=== PATIENT | male | born 1965 | race Caucasian/White ===

== ENCOUNTER → 2020-07-03 10:43 | Outpatient (BNVA) | payer SELFPAY | PROVIDERS: PCP Internal Medicine; Visit Provider Internal Medicine ==

== ENCOUNTER → 2022-06-19 15:25 | Outpatient (BNVA) | payer SELFPAY | PROVIDERS: PCP Internal Medicine; Visit Provider Internal Medicine | DX: Z02.79 Encounter for issue of other medical certificate (principal) ==

== ENCOUNTER 2023-12-28 13:01 | Outpatient (AMB) | payer BC, SELFPAY ==
--- NOTE | 2023-12-28 13:11 | MHC.PC.OV ---
Vital Signs 12/28/23 13:12 Height 5 ft 10 in Weight 205 lb BMI 29.4 BP 140/70 H Blood Pressure Location Lt brachial Position Sitting Pulse 67 Pulse Source Pulse Oximeter Pulse Oximetry (%) 97 Oxygen Delivery Method Room Air Intake Visit Reasons: ANNUAL PE Fitness Coach Required: No Corrective Therapist: Not Required per policy Accompanied by: Self / Same As Patient Allergies No Known Allergies [No Known Allergies*] Allergy (Verified 12/28/23 13:12) Medication List - Last Reconciled 12/29/23 by Enoc Moreau MD fluconazole (Diflucan) 100 mg PO DAILY zolpidem (Ambien) 10 mg PO BEDTIME PRN Tobacco use date assessed: 12/28/23 Dental Screening Dental Screen Date: 12/28/23 Did you have a dental visit in the last 12 months?: Yes Did you have a dental problem in the last 6 months where you did not have access to dental care?: No Was dental information given to patient?: Patient has dentist HPI ANNUAL PE HPI Details healthy [facility] Surgical History (Updated 12/28/23 @ 13:20 by TIERRA Louis) No pertinent past surgical history Social History Housing: House Patient Tobacco Use Status: Never used Tobacco e-Cigarette/Vaping Use: Never Used Second Hand Smoke Exposure: No service: No Current occupational status: employed Cognitive needs: No Hearing needs: No Vision needs: No Questionnaire PHQ-9 Over the last 2 weeks, how often have you been bothered by any of the following problems? 1. Little interest or pleasure in doing things: not at all 2. Feeling down, depressed, or hopeless: not at all 3. Trouble falling or staying asleep, or sleeping too much: not at all 4. Feeling tired or having little energy: not at all 5. Poor appetite or overeating: not at all 6. Feeling bad about yourself - or that you are a failure or have let yourself or your family down: not at all 7. Trouble concentrating on things, such as reading the newspaper or watching television: not at all 8. Moving or speaking so slowly that other people could have noticed. Or the opposite - being so fidgety or restless that you have been moving around a lot more than usual: not at all 9. Thoughts that you would be better off or of hurting yourself in some way: not at all Total score: 0 Depression Screening Interpretation: Negative Depression Screening Done: Yes 60231 - PHQ-9 Billing: Yes Source: Developed by Drs. Dell Padron, Jazz Varghese, Martín Colunga and colleagues, with an educational vern from [employer]. Thrive Questionnaire Date Thrive assessed: 12/28/23 I am a: Patient What is your living situation today?: I have a steady place to live Within the past 12 months, did the food you bought not last and you didn't have the money to get more?: Never true Within the past 12 months, did you worry whether your food would run out before you got money to buy more?: Never true Do you have trouble paying for medicines?: No Do you have trouble getting transportation to medical appointments?: No Do you have trouble paying your heating and electricity bill?: No Do you have trouble taking care of your child, family member or friend?: No Do you have trouble with day-to-day activities such as bathing, preparing meals, shopping, managing finances, etc.?: No Are you currently unemployed and looking for a job?: No Are you interested in more education?: No Please select the resources that you would like help with: None THRIVE Score: 0 AUDIT C Alcohol Use Questionnaire (AUDIT-C) 1. How often do you have a drink containing alcohol?: Monthly or less 2. How many drinks containing alcohol do you have on a typical day when you are drinking?: 1 or 2 3. How often do you have six or more drinks on one occasion?: Never Total Score: 1 Score Reviewed/Action Taken: Yes DALIA-7 AMB Questionnaire DALIA-7 Date DALIA - 7 assessed: 12/28/23 Feeling nervous, anxious, or on edge: 0 = Not at all Not being able to stop or control worryin = Not at all Worrying too much about different things: 0 = Not at all Trouble relaxin = Not at all Being so restless that it is hard to sit still: 0 = Not at all Becoming easily annoyed or irritable: 0 = Not at all Feeling afraid as if something awful might happen: 0 = Not at all Total DALIA-7 score (0-4 normal; 5-9 mild; 10-14 moderate; 15-21 severe): 0 Source: Developed by Drs. Dell Padron, Jazz Varghese, Martín Colunga and colleagues, with an educational vern from [employer]. DALIA-7 Assessment Billing DALIA-7 Assessment Tool: DALIA-7 Assessment 28940 Review of Systems Const Denies chills, Denies fatigue, Denies headache(s) and Denies weight loss Eyes Denies change in vision, Denies diplopia and Denies eye pain ENT Denies vertigo, Denies dizziness, Denies headache(s) and Denies nasal discharge Card Denies chest pain, Denies rapid heart rate and Denies dyspnea on exertion Resp Denies chest congestion, Denies cough, Denies pain with cough and Denies dyspnea on exertion GI Denies abdominal pain, Denies hematochezia and Denies change in bowel habits Musc Denies myalgias, Denies arthralgias and Denies joint swelling Skin/Breast Denies lesions and Denies unusual bruising Neuro Denies vertigo, Denies dizziness, Denies headache(s) and Denies focal weakness Endo Denies fatigue Physical exam (Primary Care) Vital Signs: Last Vital Signs Pulse 67 12/28/23 13:12 BP 140/70 H 12/28/23 13:12 Pulse Ox 97 12/28/23 13:12 Oxygen Delivery Method Room Air 12/28/23 13:12 BMI result Body Mass Index 29.4 Tobacco/Smoking Status: Tobacco use Status Tobacco use date assessed 12/28/23 12/28/23 13:13 Patient Tobacco Use Status Never used Tobacco 12/28/23 13:13 e-Cigarette/Vaping Use Never Used 12/28/23 13:13 PHQ-9: PHQ-9 Score PHQ-9: Total score 0 12/28/23 13:13 Depression Screening Interpretation: Negative Thrive Assessment: Date of Thrive Assessment Date Thrive assessed 12/28/23 12/28/23 13:13 Const General: cooperative, healthy appearing and no acute distress Orientation/consciousness: oriented to person, oriented to place and oriented to time [facility] Head: Yes normal to inspection, Yes normocephalic and Yes atraumatic Mouth: Normal oral and palatal mucosa present and tongue normal Throat: Yes posterior oropharynx normal and Yes uvula midline Eyes General: appearance normal, both eyes and all related structures Neck Neck: Yes normal visual inspection, Yes full ROM and Yes no lymphadenopathy Thyroid: Thyroid normal Carotids: normal carotid upstroke Chest Chest palpation & inspection: normal inspection of the chest Resp Effort & Inspection: normal respiratory effort and able to speak in complete sentences Auscultation: clear to auscultation bilaterally Cardio Jugular venous distension: no JVD Palpation: normal PMI Rate: regular rate Rhythm: regular rhythm Heart sounds: S1 normal heart sound present and S2 normal heart sound present GI Inspection: Yes normal to inspection Palpation (GI): Soft to palpation and No hepatosplenomegaly present Auscultation: normal bowel sounds General: Yes no CVA tenderness Back/Spine/Pelvis Back: no CVA tenderness Skin General skin exam: no rashes or lesions noted Neuro General: oriented to person, oriented to place and oriented to time Extrem General: Yes normal to inspection and Yes full ROM Assessment and Plan Assessment & Plan (1) Physical exam: Code(s): Z00.00 - Encounter for general adult medical examination without abnormal findings Plan: do labs Orders: Orders Lipid Panel 12/28/23 Z13.220 - Encounter for screening for lipoid disorders Complete Blood Count Auto Diff 12/28/23 Z13.0 - Encounter for screening for diseases of the blood and blood-forming organs and certain disorders involving the immune mechanism Comprehensive [place]. Panel Fast 12/28/23 Z13.9 - Encounter for screening, unspecified Prostate Specific Antigen Scr 12/28/23 Z00.00 - Encounter for general adult medical examination without abnormal findings Thyroid Stimulating Hormone 12/28/23 Z13.29 - Encounter for screening for other suspected endocrine disorder Coding Level of Care Code Est Pt Prev Care 40-64y(47060) Diagnoses Physical exam Z00.00 Additional Codes DALIA-7 Assessment Billing - DALIA-7 Assessment Tool: DALIA-7 Assessment 12219 ([id number])
[2023-12-28 13:12] VITALS: BP 140/70; PULSE 67; O2SAT 97; BMI 29.4
== END 2023-12-28 13:42 | disposition home or self-care (01) ==
PROVIDERS: PCP Internal Medicine; Visit Provider Internal Medicine
DX: Z00.00 Encounter for general adult medical examination without abnormal findings (principal)
CPT/HCPCS: 99396

== ENCOUNTER → 2024-06-08 07:41 | Outpatient (BNVA) | payer SELFPAY | PROVIDERS: PCP Internal Medicine; Visit Provider Internal Medicine | DX: Z02.79 Encounter for issue of other medical certificate (principal) ==

== ENCOUNTER 2024-12-30 15:32 | Outpatient (AMB) | payer BC, SELFPAY ==
--- OUTSIDE RECORDS SUMMARY | 2024-12-30 15:34 | XMS_ITS | Clinical Summary ---
Author Organization [facility] Address [address] [place] [address] Phone Care Team Providers Care Cco & President Name Role Phone Miguel Davis MD Primary Care Provider [phone] Social History Tobacco Use Types Packs/Day Years Used Date Smoking Tobacco: Never Assessed Sex and Gender Information Value Date Recorded Sex Assigned at Not on file Legal Sex Male 10:02 PM EST Gender Identity Not on file Sexual Orientation Not on file Plan of Treatment Health Maintenance Due Date Last Done Comments DTaP,Tdap,and Td Vaccines (1 - Tdap) 1982 Pneumococcal Vaccine: 50+ Ye ars (1 of 1 - PCV) 2013 Zoster Vaccines (1 of 2) 2013 Cholesterol Screening (Lipid Panel) 09/22/2023 Colorectal Cancer Screening: Colonoscopy 09/22/2023 Depression Screening 09/22/2023 HIV Screening 09/22/2023 Hepatitis C Screening 09/22/2023 Social Influencers of Health Screening 09/22/2023 COVID-19 Vaccine ( - 2023-2 5 season) 2024 Influenza Vaccine (Season Ended) 2025 RSV Immunization Adult Patie nts (1 - 1-dose 75+ series) 2038 HIB Vaccines Aged Out No longer eligi ble based on patient's age to complete this topic HPV Vaccines Aged Out No longer eligi ble based on patient's age to complete this topic Hepatitis A Vaccines Aged Out No long er eligible based on patient's age to complete this topic Hepatitis B Vaccines Aged Out No long er eligible based on patient's age to complete this topic IPV Vaccines Aged Out No longer eligi ble based on patient's age to complete this topic MMR Vaccines Aged Out No longer eligi ble based on patient's age to complete this topic Meningococcal ACWY Vaccine Aged Out N o longer eligible based on patient's age to complete this topic Meningococcal B Vaccine Aged Out No l onger eligible based on patient's age to complete this topic Pneumococcal Vaccine: Pediat rics (0 to 5 Years) and At-Risk Patients (6 to 64 Years) Aged Out No longer eligible b ased on patient's age to complete this topic RSV Immunization Patients Un ambika 20 months Aged Out No longer eligible b ased on patient's age to complete this topic Varicella Vaccines Aged Out No longer eligible based on patient's age to complete this topic Care Teams Cco & President Relationship Specialty Start Date End Date Miguel Davis MD [address] [place] [address] PCP - General 08/24/1991
--- NOTE | 2024-12-30 15:36 | MHC.PC.OV ---
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: No Accompanied by: Self / Same As Patient Allergies No Known Allergies [No Known Allergies*] Allergy (Verified 12/30/24 15:48) Medication List - Last Reconciled 12/30/24 by JENNIFER Mcdaniel zolpidem (Ambien) 10 mg PO BEDTIME PRN Tobacco use date assessed: 12/30/24 Dental Screening Dental Screen Date: 12/30/24 Did you have a dental visit in the last 12 months?: Yes Did you have a dental problem in the last 6 months where you did not have access to dental care?: No Was dental information given to patient?: Patient has dentist HPI EVAN Lainer/annual exam HPI Details The patient is a 59-year-old male presenting for a wellness check and management of identified health issues, including right knee pain and vision deficiencies. The knee pain, characterized by a pulling sensation and primarily affecting sleep, has been ongoing for about a year, with noted variability relating to occupational activities involving walking and stair climbing. Corrective lenses for reading are utilized, while distance vision remains unaffected; his last ocular examination was a year ago. The patient has a history of polyp removal during colonoscopy, with the latest procedure a year prior yielding good results. Regarding inoculations, he received an influenza vaccine pre-winter and the initiating shingles vaccine dose two months prior, with the second dose planned soon. He is unclear on his tetanus vaccination status and intends to consult family records. Activity-kat, the patient reports limited structured exercise but achieves significant foot travel through work, supplemented by occasional biking and weekend walks. His diet is described as regular, comprising varied food types including salads. HEALTH MAINTENANCE: - Influenza vaccination: Received before the last winter season. - Shingles vaccination: First dose received in September; follow-up pending. - Tetanus: Vaccination status unclear; further investigation needed. - Eye exam: Conducted approximately one year ago. - Colonoscopy: Last performed a year ago; follow-up schedule advised based on findings. - Prostate health: Discussed need for monitoring labs without recent symptoms warranting immediate concern. - Encouraged continuation and increment of physical activity levels. [facility] Medical History (Updated 12/31/24 @ 17:12 by JENNIFER Mcdaniel) Insomnia Surgical History No pertinent past surgical history Social History Housing: House Patient Tobacco Use Status: Never used Tobacco e-Cigarette/Vaping Use: Never Used Second Hand Smoke Exposure: No service: No Current occupational status: employed Cognitive needs: No Hearing needs: No Vision needs: No Questionnaire PHQ-9 Over the last 2 weeks, how often have you been bothered by any of the following problems? 1. Little interest or pleasure in doing things: nearly every day 2. Feeling down, depressed, or hopeless: not at all 3. Trouble falling or staying asleep, or sleeping too much: not at all 4. Feeling tired or having little energy: not at all 5. Poor appetite or overeating: not at all 6. Feeling bad about yourself - or that you are a failure or have let yourself or your family down: not at all 7. Trouble concentrating on things, such as reading the newspaper or watching television: not at all 8. Moving or speaking so slowly that other people could have noticed. Or the opposite - being so fidgety or restless that you have been moving around a lot more than usual: not at all 9. Thoughts that you would be better off or of hurting yourself in some way: not at all Total score: 3 Depression Screening Interpretation: Negative Depression Screening Done: Yes 77898 - PHQ-9 Billing: Yes Source: Developed by Drs. Dell Padron, Jazz Varghese, Martín Colunga and colleagues, with an educational vern from [employer]. Thrive Questionnaire Date Thrive assessed: 12/30/24 I am a: Patient What is your living situation today?: I have a steady place to live Within the past 12 months, did the food you bought not last and you didn't have the money to get more?: Never true Within the past 12 months, did you worry whether your food would run out before you got money to buy more?: Never true Do you have trouble paying for medicines?: No Do you have trouble getting transportation to medical appointments?: No Do you have trouble paying your heating and electricity bill?: No Do you have trouble taking care of your child, family member or friend?: No Do you have trouble with day-to-day activities such as bathing, preparing meals, shopping, managing finances, etc.?: No Are you currently unemployed and looking for a job?: Yes Are you interested in more education?: No Please select the resources that you would like help with: None Currently or been in a relationship where the following occur: No concerns reported THRIVE Score: 0 AUDIT C Alcohol Use Questionnaire (AUDIT-C) 1. How often do you have a drink containing alcohol?: Never Total Score: 0 Score Reviewed/Action Taken: No DALIA-7 AMB Questionnaire DALIA-7 Date DALIA - 7 assessed: 12/30/24 Feeling nervous, anxious, or on edge: 0 = Not at all Not being able to stop or control worryin = Not at all Worrying too much about different things: 0 = Not at all Trouble relaxin = Not at all Being so restless that it is hard to sit still: 0 = Not at all Becoming easily annoyed or irritable: 0 = Not at all Feeling afraid as if something awful might happen: 0 = Not at all Total DALIA-7 score (0-4 normal; 5-9 mild; 10-14 moderate; 15-21 severe): 0 Source: Developed by Drs. Dell Padron, Jazz Varghese, Martín Colunga and colleagues, with an educational vern from [employer]. DALIA-7 Assessment Billing DALIA-7 Assessment Tool: DALIA-7 Assessment 47312 Review of Systems Const Denies headache(s) Eyes Denies loss of vision ENT Denies vertigo, Denies dizziness, Denies headache(s) and Denies sore throat Card Denies chest pain, Denies leg edema and Denies lightheadedness Resp Denies cough, Denies hemoptysis and Denies wheezing GI Denies abdominal pain, Denies melena, Denies constipation, Denies diarrhea and Denies vomiting Denies dysuria, Denies urinary frequency and Denies urinary urgency Musc Reports arthralgias (Right knee discomfort feels like something is pulling/during sleep), Denies joint swelling, Denies numbness and Denies tingling Neuro Denies Abnormal speech present, Denies behavioral changes, Denies vertigo, Denies dizziness, Denies headache(s), Denies loss of vision, Denies memory loss, Denies numbness and Denies tingling Psych Denies anxiety, Denies behavioral changes, Denies depression, Denies memory loss and Denies panic attacks Deni/Lymph Denies easy bleeding and Denies easy bruising Aller/Immun Denies wheezing Physical exam (Primary Care) Vital Signs: Last Vital Signs Temp 98.4 F 12/30/24 15:37 Pulse 76 12/30/24 15:37 Resp 16 12/30/24 15:37 BP 132/80 12/30/24 15:37 Pulse Ox 96 12/30/24 15:37 Oxygen Delivery Method Room Air 12/30/24 15:37 BMI result Body Mass Index 29.2 Tobacco/Smoking Status: Tobacco use Status Tobacco use date assessed 12/30/24 12/30/24 15:44 Patient Tobacco Use Status Never used Tobacco 12/30/24 15:44 e-Cigarette/Vaping Use Never Used 12/30/24 15:44 PHQ-9: PHQ-9 Score PHQ-9: Total score 3 12/30/24 15:52 Depression Screening Interpretation: Negative Thrive Assessment: Date of Thrive Assessment Date Thrive assessed 12/30/24 12/30/24 15:44 Currently or been in a relationship where the following occur: No concerns reported Const General: healthy appearing, no acute distress, alert and awake Nutritional Appearance: well nourished Orientation/consciousness: oriented to person, oriented to place and oriented to time [facility] Ears: TM's normal bilaterally General nose exam: Normal nasal mucous membranes and turbinates present Eyes Conjunctivae: conjunctivae normal Sclerae: sclerae normal Pupils: Equal, round and reactive pupils present Neck Neck: Yes no lymphadenopathy and Yes no JVD Thyroid: Thyroid normal Carotids: no bruits Resp Effort & Inspection: normal respiratory effort and not tachypneic Auscultation: no crackles, no rales, no rhonchi and no wheezes Cardio Rate: regular rate Rhythm: regular rhythm Heart sounds: no murmurs and normal S1 and S2 GI Palpation (GI): Soft to palpation, nontender, no hepatomegaly and no splenomegaly Auscultation: normal bowel sounds Skin General skin exam: no rashes or lesions noted and dry skin Neuro General: oriented to person, oriented to place and oriented to time Cranial nerves: Yes Equal, round and reactive pupils present Speech: No Abnormal speech present Gait exam (Neuro): Normal gait present Motor exam (neuro): no tremor noted Extrem Right upper extremity: full ROM Left upper extremity: full ROM Right lower extremity: full ROM and knee Details: no tenderness and no swelling; no edema Left lower extremity: full ROM; no edema Psych Mental Status: mental status grossly normal Speech and movement: Normal speech and movement present Affect: normal affect Attitude: cooperative Thought process: Normal thought process present Coding Level of Care Code Est Pt Prev Care 40-64y(18630) Diagnoses Physical exam Z00.00 Allergic rhinitis, unspecified seasonality, unspecified trigger J30.9 Allergic rhinitis trigger: unspecified Allergic rhinitis seasonality: unspecified Insomnia, unspecified type G47.00 Insomnia type: unspecified Right knee pain, unspecified chronicity M25.561 Chronicity: unspecified Additional Codes DALIA-7 Assessment Billing - DALIA-7 Assessment Tool: DALIA-7 Assessment 67560 ([id number]) PHQ-9 - 80943 - PHQ-9 Billing: Yes ([id number]) Time Spent (min) 39 Assessment & Plan Assessment & Plan (1) Physical exam: Code(s): Z00.00 - Encounter for general adult medical examination without abnormal findings Category: Medical (2) Allergic rhinitis: Code(s): J30.9 - Allergic rhinitis, unspecified Category: Medical Qualifiers: Allergic rhinitis trigger: unspecified Allergic rhinitis seasonality: unspecified Qualified Code(s): J30.9 - Allergic rhinitis, unspecified (3) Insomnia: Code(s): G47.00 - Insomnia, unspecified Category: Medical Qualifiers: Insomnia type: unspecified Qualified Code(s): G47.00 - Insomnia, unspecified (4) Right knee pain: Code(s): M25.561 - Pain in right knee Category: Medical Qualifiers: Chronicity: unspecified Qualified Code(s): M25.561 - Pain in right knee Plan Preventative guidelines reviewed with the patient. No recent labs to review. Labs were ordered and printed for the patient to be completed at [employer]. Patient is up-to-date on most screenings. Added at a PSA to his scheduled labs. He is unsure of his tetanus immunization status. No documentation in chart. Patient wants to run this by his 1st because she might have this information. Reports that if he needs it he will go to the pharmacy and get it. Recently had the 1st dose of the shingles vaccine and will be returning to the pharmacy to get the 2nd dose as scheduled. Colonoscopy done 2023, which was within normal limits and to be repeated in 10 years. His prior colonoscopy, few benign polyps were removed. Patient is up-to-date on his dental and eye exam reports that he only needs reading glasses. Ongoing insomnia. Reinforced sleep hygiene, continue zolpidem 10 mg at bedtime p.r.n. The patient also complained of right knee pain particularly during sleep. Reports that he feels like there is a pulling sensation in his right knee. Reports that this pain is not severe and he has not needed any medication so far. Patient attributes right knee discomfort to frequently going up and down stairs at work. Patient was informed and verbally consented to the use of an ambient scribe for clinic note documentation during this visit. Orders: Orders Complete Blood Count Auto Diff 12/30/24 G4.00 - Insomnia, unspecified, Z00.00 - Encounter for general adult medical examination without abnormal findings Comprehensive [place]. Panel Fast 12/30/24 G47.00 - Insomnia, unspecified, Z00.00 - Encounter for general adult medical examination without abnormal findings Lipid Panel 12/30/24 G47.00 - Insomnia, unspecified, Z00.00 - Encounter for general adult medical examination without abnormal findings Glucose Fasting 12/30/24 G47.00 - Insomnia, unspecified, Z00.00 - Encounter for general adult medical examination without abnormal findings Vitamin D 25-OH Total 12/30/24 G47.00 - Insomnia, unspecified, Z00.00 - Encounter for general adult medical examination without abnormal findings TSH reflex Free T4 12/30/24 G47.00 - Insomnia, unspecified, Z00.00 - Encounter for general adult medical examination without abnormal findings PSA,Total (Free>4and<10) 12/30/24 G47.00 - Insomnia, unspecified, Z00.00 - Encounter for general adult medical examination without abnormal findings UA CC w/rflx Micro + Cult 12/30/24 G47.00 - Insomnia, unspecified, Z00.00 - Encounter for general adult medical examination without abnormal findings
[2024-12-30 15:37] VITALS: BP 132/80; PULSE 76; RESP 16; TEMP 36.9; O2SAT 96; BMI 29.2
== END 2024-12-30 16:13 | disposition home or self-care (01) ==
LOC: HO.HMCH 15:33
DX: Z00.00 Encounter for general adult medical examination without abnormal findings (principal); J30.9 Allergic rhinitis, unspecified; G47.00 Insomnia, unspecified; M25.561 Pain in right knee

== ENCOUNTER → 2024-12-30 15:32 | Outpatient (BNVA) | payer BC, SELFPAY | PROVIDERS: PCP Internal Medicine | DX: Z00.00 Encounter for general adult medical examination without abnormal findings (principal); J30.9 Allergic rhinitis, unspecified; G47.00 Insomnia, unspecified; M25.561 Pain in right knee | CPT/HCPCS: 96127 ==